=== PATIENT | female | born 1955 | race Caucasian/White ===

== ENCOUNTER 2024-12-21 10:46 | Day surgery (SDC) | payer MEDICARE, BC ==
[~2024-12-21] VITALS: Ht 182.9 cm; Wt 79.5 kg
[~2024-12-21 10:46] MED LIST: CHOL10006 PO; DENO60DI SUBCUT; ESCI-8 PO; PANT40TA54 PO; ZOLP5TAB8 PO
[2024-12-21 11:07] VITALS: BP 116/68; PULSE 60; RESP 12
[2024-12-21] MEDS ORDERED: fentaNYL/PF 50MCG/1 ML 2ML syringe ONE (11:37)
[2024-12-21] MEDS ORDERED: midazolam 1 mg/ML 2ml injection ONE (11:37)
[2024-12-21] MEDS ORDERED: propofol inj 20 ML IV ONE (11:40)
[2024-12-21 11:55] VITALS: BP 111/58; PULSE 54; RESP 16; O2SAT 96
[2024-12-21 12:05] VITALS: BP 116/63; PULSE 54; RESP 15; O2SAT 95
[2024-12-21 12:15] VITALS: BP 114/65; PULSE 53; RESP 16; O2SAT 97
[2024-12-21 12:25] VITALS: BP 124/61; PULSE 52; RESP 16; O2SAT 95
--- NOTE | 2024-12-22 10:59 | PATHOLOGY REPORT ---
[facility] [address] [place] [address] SURGICAL PATHOLOGY REPORT CaseNumber: [id number] Surgeon:Ruben Flores M.D. CLINICAL INFORMATION CLINICAL INFORMATION: Epigastric abdominal pain, heartburn, suspected esophageal reflux. DIAGNOSIS DIAGNOSIS: STOMACH, ANTRUM; BIOPSY - NORMAL ANTRAL-TYPE GASTRIC MUCOSA. - NEGATIVE FOR INTESTINAL METAPLASIA. - NEGATIVE FOR H. PYLORI. MICROSCOPIC DESCRIPTION MICROSCOPIC DESCRIPTION: Reviewed is 1 H&E stained slide showing multiple levels of gastric antral-ty pe mucosa. I see no significant increase in acute or chronic inflammation. The glands are appropria tely spaced; I see no evidence of fibrosis. There is no evidence of dysplasia, intestinal metaplasia , or Helicobacter pylori. GROSS DESCRIPTION GROSS DESCRIPTION: Received in a container of formalin labeled with the patient's name, number, and " antrum BX" is a 0.3 cm piece of burrell tissue. The specimen is entirely submitted as A1. The time at [facility] the specimen was removed was 1144. The time at which the specimen was placed in formalin was 1144. Electronically signed by: Erlin Pool, 12/22/2024 10:27:00 AM
== END 2024-12-21 12:35 | disposition home or self-care (01) ==
LOC: GI LAB 10:46
PROVIDERS: ATTEND Internal Medicine Gastroenterology
DX: R10.13 Epigastric pain (principal); K31.89 Other diseases of stomach and duodenum; K21.9 Gastro-esophageal reflux disease without esophagitis; Z79.899 Other long term (current) drug therapy
CPT/HCPCS: 43239; J2250; J2704; J3010; J7030; Z7512; 88305